=== PATIENT | male | born 1950 | race Hispanic/Latino ===

== ENCOUNTER 2024-11-19 04:35 | Inpatient (IN) | payer MEDICARE ==
[~2024-11-19] VITALS: Ht 170.2 cm; Wt 99.3 kg
[2024-11-19] MEDS: SODIUM CHLORIDE 0.9% 1000ML 1,000 ML IV ONE (04:58)
[2024-11-19 05:26] LABS: BASOPHILS % 0.4 % (0.0-1.0); EOSINOPHILS % 0.3 % (0.0-6.0); LYMPHOCYTES % 7.6 % (18.0-39.1); MONOCYTES % 6.2 % (4.4-11.3); NEUTROPHILS % 84.7 % (38.7-80.0); RED CELL DISTRIBUTION WIDTH 13.5 % (11.7-14.4)
[2024-11-19 05:31] LABS: INR 1.06
[2024-11-19 05:42] LABS: EST GLOMERULAR FILTRATION RATE 84.0 ML/MIN (>=60)
[2024-11-19 06:15] LABS: LEUKOCYTE ESTERASE ,URINE NEGATIVE (NEGATIVE)
[2024-11-19 06:16] LABS: EPITHELIAL CELLS,URINE FEW /LPF; PROTEIN,URINE DIPSTICK 2+ (NEGATIVE); URINE UROBILINOGEN 4.0 mg/dL (0.2 - 1)
[2024-11-19] MEDS ORDERED: IOPAMIDOL 370 MG/ML 100 ML INFUS..BTL INJ ONE (06:29)
[2024-11-19] MEDS ORDERED: LEVOFLOXACIN250 MG PO (06:59)
[2024-11-19] MEDS ORDERED: DOXYCYCLINE HY100 MG PO (06:59)
[2024-11-19 08:47] VITALS: PULSE 66; RESP 16; TEMP 99.5
[2024-11-19] MEDS: Morphine 4mg INJECTION 4 MG/ML INJ IV PRN (10:26)
[2024-11-19] MEDS: ONDANSETRON HCL INJ 2MG/ML 2ML 2 MG/ML VIAL IV PRN (10:26)
[2024-11-19] MEDS: SODIUM CHLORIDE 0.9% 1000ML 1,000 ML IV SCH (10:26)
[2024-11-19 13:00] VITALS: BP 151/74; PULSE 54; RESP 20; TEMP 99.4; O2SAT 96
[2024-11-19] MEDS ORDERED: tylenol #3 PO (14:45)
[2024-11-19] MEDS ORDERED: LIPITOR20 MG PO (14:45)
[2024-11-19] MEDS ORDERED: ALLOPURINOL100 MG PO (14:45)
[2024-11-19] MEDS: POTASSIUM CHLORIDE 20 MEQ TAB CR PO STA (18:57)
[2024-11-19 20:00] VITALS: BP 138/79; PULSE 65; RESP 17; TEMP 100.4; TEMP 100.8; O2SAT 94
[2024-11-19 20:45] VITALS: TEMP 100.4
[2024-11-19 23:44] VITALS: TEMP 98.8
[2024-11-20] VITALS (11 sets, daily range): BP systolic 134–176; BP diastolic 64–82; PULSE 63–78; RESP 16–21; TEMP 98.6–100.6; O2SAT 94–100
[2024-11-20 05:42] LABS: BASOPHILS % 0.3 % (0.0-1.0); EOSINOPHILS % 0.4 % (0.0-6.0); LYMPHOCYTES % 6.3 % (18.0-39.1); MONOCYTES % 10.5 % (4.4-11.3); NEUTROPHILS % 80.6 % (38.7-80.0); RED CELL DISTRIBUTION WIDTH 13.7 % (11.7-14.4)
[2024-11-20 06:00] LABS: EST GLOMERULAR FILTRATION RATE 93.0 ML/MIN (>=60)
[2024-11-20] MEDS: ACETAMINOPHEN 325 MG TAB PO ONE (06:40)
[2024-11-20] MEDS ORDERED: LIDOCAINE HCL 2% LOCAL INJ 5 ML SDV VIAL INJ ONE (06:47)
[2024-11-20] MEDS ORDERED: ROCURONIUM BROMIDE 1 ML IV ONE (06:47)
[2024-11-20] MEDS ORDERED: FENTANYL CITRATE/PF 100MCG/2 ML INJ ONE (06:47)
[2024-11-20] MEDS ORDERED: SUCCINYLCHOLINE CHLORIDE 20 MG/ML 10ML VIAL ONE (06:48)
[2024-11-20] MEDS ORDERED: PROPOFOL IV EMULSION 10 MG/ML 20 ML VIAL ONE (06:50)
[2024-11-20] MEDS ORDERED: Morphine 10mg syringe 10 MG/ML INJ ONE (07:22)
[2024-11-20] MEDS ORDERED: SEVOFLURANE INHAL SOLN 250 ML PEN BTL ONE (07:40)
[2024-11-20] MEDS ORDERED: SUGAMMADEX SODIUM 200 MG/2 ML VIAL IV ONE (07:40)
[2024-11-20] MEDS ORDERED: ACETAMINOPHEN 325 MG TAB PO PRN (08:15)
[2024-11-20] MEDS: SODIUM CHLORIDE 0.9% 1000ML 1,000 ML IV SCH (08:15)
[2024-11-20] MEDS: ACETAMINOPHEN 325 MG TAB PO PRN (15:15)
[2024-11-21] VITALS (8 sets, daily range): BP systolic 116–151; BP diastolic 58–91; PULSE 60–74; RESP 16–20; TEMP 97.3–100.2; O2SAT 95–100
[2024-11-21 05:39] LABS: BASOPHILS % 0.5 % (0.0-1.0); EOSINOPHILS % 0.2 % (0.0-6.0); LYMPHOCYTES % 6.8 % (18.0-39.1); MONOCYTES % 6.4 % (4.4-11.3); NEUTROPHILS % 82.6 % (38.7-80.0); RED CELL DISTRIBUTION WIDTH 13.9 % (11.7-14.4)
[2024-11-21 06:04] LABS: EST GLOMERULAR FILTRATION RATE 95.0 ML/MIN (>=60)
[2024-11-22] VITALS (7 sets, daily range): BP systolic 104–167; BP diastolic 68–85; PULSE 50–72; RESP 18–23; TEMP 97.6–99.8; O2SAT 95–100
[2024-11-22] MEDS: HYDROCODONE/APAP 5MG-325MG TAB PO PRN (00:30)
[2024-11-22 05:34] LABS: BASOPHILS % 0.5 % (0.0-1.0); EOSINOPHILS % 1.9 % (0.0-6.0); LYMPHOCYTES % 10.7 % (18.0-39.1); MONOCYTES % 5.5 % (4.4-11.3); NEUTROPHILS % 75.5 % (38.7-80.0); RED CELL DISTRIBUTION WIDTH 14.3 % (11.7-14.4)
[2024-11-22 08:29] LABS: EST GLOMERULAR FILTRATION RATE 94.0 ML/MIN (>=60)
[2024-11-23] VITALS (9 sets, daily range): BP systolic 136–168; BP diastolic 61–79; PULSE 60–95; RESP 18–20; TEMP 98.4–99.4; O2SAT 96–100
[2024-11-23 05:12] LABS: BASOPHILS % 0.5 % (0.0-1.0); EOSINOPHILS % 2.4 % (0.0-6.0); LYMPHOCYTES % 9.3 % (18.0-39.1); MONOCYTES % 5.9 % (4.4-11.3); NEUTROPHILS % 76.9 % (38.7-80.0); RED CELL DISTRIBUTION WIDTH 14.2 % (11.7-14.4)
[2024-11-23 05:33] LABS: EST GLOMERULAR FILTRATION RATE 95.0 ML/MIN (>=60)
[2024-11-23] MEDS: ALLOPURINOL 100 MG TAB PO SCH (08:44)
[2024-11-23] MEDS: ATORVASTATIN 20 MG TAB PO SCH (21:12)
[2024-11-24] VITALS (9 sets, daily range): BP systolic 129–147; BP diastolic 60–72; PULSE 59–75; RESP 18–20; TEMP 97.8–99.7; O2SAT 95–100
[2024-11-24] MEDS: ONDANSETRON HCL INJ 2MG/ML 2ML 2 MG/ML VIAL IV PRN (23:54)
[2024-11-25 03:06] VITALS: BP 113/69; PULSE 60; RESP 18; TEMP 97.5; O2SAT 99
[2024-11-25 05:22] LABS: BASOPHILS % 0.6 % (0.0-1.0); EOSINOPHILS % 2.2 % (0.0-6.0); LYMPHOCYTES % 9.1 % (18.0-39.1); MONOCYTES % 5.7 % (4.4-11.3); NEUTROPHILS % 77.8 % (38.7-80.0); RED CELL DISTRIBUTION WIDTH 14.2 % (11.7-14.4)
[2024-11-25 06:13] LABS: EST GLOMERULAR FILTRATION RATE 92.0 ML/MIN (>=60)
[2024-11-25 07:25] VITALS: PULSE 68; RESP 18; O2SAT 97
[2024-11-25 08:29] VITALS: BP 124/63; PULSE 65; RESP 20; TEMP 98.1; O2SAT 96
[2024-11-25] MEDS: PANTOPRAZOLE SOD 40 MG TABEC PO SCH (09:18)
[2024-11-25 09:23] VITALS: BP 124/63; PULSE 65; RESP 20; TEMP 98.1; O2SAT 96
[2024-11-25] MEDS ORDERED: ONDANSETRON ODT4 MG PO (10:59)
[2024-11-25] MEDS ORDERED: ACETAMINOPHEN325 M1 PO (10:59)
[2024-11-25] MEDS ORDERED: DOXYCYCLINE HY100 MG PO (12:15)
[2024-11-25] MEDS ORDERED: AUGMENTIN 500-1 EACH PO (12:15)
[2024-11-25 12:31] VITALS: BP 139/70; PULSE 68; RESP 20; TEMP 97.6; O2SAT 97
[2024-11-25 13:54] VITALS: PULSE 65; RESP 18; O2SAT 98
== END 2024-11-25 15:25 | disposition home health service (06) | DRG 397 ==
LOC: ER 04:40 → ERHOLD 09:25 → MED/SURG 12:38
PROVIDERS: ADMIT Internal Medicine; ATTEND Internal Medicine
PROC: 0DTJ0ZZ Resection of Appendix, Open Approach (ICD-10-PCS; principal; 2024-11-20 07:07)
PROC: 0YQ50ZZ Repair Right Inguinal Region, Open Approach (ICD-10-PCS; 2024-11-20 07:07)
DX: K40.90 Unilateral inguinal hernia, without obstruction or gangrene, not specified as recurrent (principal); K35.33 Acute appendicitis with perforation, localized peritonitis, and gangrene, with abscess; N39.0 Urinary tract infection, site not specified; E83.51 Hypocalcemia; E78.5 Hyperlipidemia, unspecified; N43.3 Hydrocele, unspecified; N45.2 Orchitis; D64.9 Anemia, unspecified; N45.1 Epididymitis; K21.9 Gastro-esophageal reflux disease without esophagitis; N28.1 Cyst of kidney, acquired; R31.29 Other microscopic hematuria; M10.9 Gout, unspecified; E87.6 Hypokalemia; E66.9 Obesity, unspecified; Z68.34 Body mass index [BMI] 34.0-34.9, adult; Z87.440 Personal history of urinary (tract) infections
CPT/HCPCS: 36415; 74177; 76870; 80048; 80053; 80076; 81001; 83690; 85025; 85610; 85730; 87086; 88302; 88304; 88342; 93976; 94799; 99284; J0330; J2003; J2270; J2405; J2470; J2543; J7030; Q9967